=== PATIENT | male | born 1985 | race Caucasian/White ===

== ENCOUNTER 2019-08-07 09:03 | Emergency (ER) | payer OTHER ==
--- NOTE | 2019-08-07 09:20 | ED Physician Documentation ---
PD HPI ABD PAIN - Stated complaint Stated Complaint: ABD PX,RECTAL BLEEDING - Chief complaint Chief Complaint: Abd Pain - History obtained from History obtained from: Patient, Family - History of Present Illness Timing - onset: How many days ago (3) Timing - duration: Days (3) Timing - details: Gradual onset, Still present Quality: Sharp, Pain Location: LLQ Radiation: Lower back Improved by: Laying still Worsened by: Moving, Position, Palpation Associated symptoms: Diarrhea, Constipation, Hematochezia. No: Nausea, Vomiting, Hematemesis Similar symptoms before: Has not had sx before Recently seen: Not recently seen - Additional information Additional information: Previously well 34-year-old male has a history of PTS D and rectal fissure has developed some abdominal pain after a bout of diarrhea 1 week ago. The pain has progressively worsened over the last 3 days stools have firmed and now he has blood. He has left lower quadrant tenderness and denies fever. Review of Systems Constitutional: denies: Fever Eyes: denies: Decreased vision Ears: denies: Ear pain Nose: denies: Rhinorrhea / runny nose, Congestion Throat: denies: Sore throat Cardiac: denies: Chest pain / pressure, Palpitations Respiratory: reports: Cough. denies: Dyspnea GI: reports: Abdominal Pain, Constipation, Diarrhea. denies: Nausea, Vomiting : denies: Dysuria, Frequency Skin: denies: Rash Musculoskeletal: denies: Neck pain, Back pain, Extremity pain Neurologic: denies: Generalized weakness, Focal weakness, Numbness PD PAST MEDICAL HISTORY - Past Medical History Psych: Bipolar disorder, Panic attacks - Past Surgical History Past Surgical History: Yes - Present Medications Home Medications: Ambulatory Orders Medication Instructions Recorded Confirmed Ondansetron [Zofran] 4 mg PO Q6H PRN 09/05/13 09/05/13 Promethazine [Phenergan] 25 - 50 mg PO Q6H PRN #10 tab 09/05/13 Ziprasidone HCl [Geodon] 40 mg PO 09/05/13 09/05/13 clonazePAM [Klonopin] 1 mg PO 09/05/13 09/05/13 Ciprofloxacin HCl [Cipro] 500 mg PO BID #14 tablet 08/07/19 Hydrocodone/Acetaminophen 1 - 2 each PO Q6H PRN #14 tablet 08/07/19 [Hydrocodon-Acetaminophen 5-325] Metronidazole [Flagyl] 500 mg PO BID #14 tablet 08/07/19 - Allergies Allergies/Adverse Reactions: Allergies Allergy/AdvReac Type Severity Reaction Status Date / Time escitalopram oxalate * AdvReac Intermediate n/v, sweats Verified 08/07/19 09:12 [From Lexapro] sertraline HCl * AdvReac Intermediate n/v, sweats Verified 08/07/19 09:12 [From Zoloft] - Social History Does the pt smoke?: Yes Smoking Status: Current every day smoker Does the pt drink ETOH?: No Does the pt have substance abuse?: No - Immunizations Immunizations are current?: Yes PD ED PE NORMAL - Vitals Vital signs reviewed: Yes (hypertensive) - General General: Alert and oriented X 3, No acute distress, Well developed/nourished - HEENT HEENT: Atraumatic, PERRL, EOMI - Neck Neck: Supple, no meningeal sign, No bony TTP - Cardiac Cardiac: RRR, No murmur - Respiratory Respiratory: No respiratory distress, Clear bilaterally - Abdomen Abdomen: Soft, Other (Left lower quadrant tenderness and left sided tenderness with gaurding, rebound and referred tenderness. There is no specific RLQ or RUQ pain to direct palpation but pain is referred to the LLQ. ) - Back Back: No CVA TTP, No spinal TTP - Derm Derm: Normal color, Warm and dry, No rash - Extremities Extremities: No deformity, No edema, No calf tenderness / cord - Neuro Neuro: Alert and oriented X 3, litigation partner 2-12 intact, No motor deficit, No sensory deficit, Normal speech Eye Opening: Spontaneous Motor: Obeys Commands Verbal: Oriented GCS Score: 15 - Psych Psych: Normal mood, Normal affect Results - Vitals Vitals: Vital Signs - 24 hr 08/07/19 08/07/19 09:08 12:02 Temperature 36.6 C 36.5 C Heart Rate 57 L 52 L Respiratory 16 16 Rate Blood Pressure 135/78 H 127/88 H O2 Saturation 99 100 Oxygen O2 Source Room air - Labs Labs: Laboratory Tests 08/07/19 08/07/19 08/07/19 09:50 09:50 09:50 WBC 6.8 RBC 5.05 Hgb 14.9 Hct 44.4 MCV 87.9 MCH 29.5 MCHC 33.6 RDW 13.2 Plt Count 257 MPV 10.4 Neut # (Auto) 3.9 Lymph # (Auto) 2.0 Knott # (Auto) 0.6 Eos # (Auto) 0.2 Baso # (Auto) 0.1 Absolute Nucleated RBC 0.00 Nucleated RBC % 0.0 Sodium 136 Potassium 4.4 Chloride 102 Carbon Dioxide 26 Anion Gap 8.0 BUN 13 Creatinine 1.1 Estimated GFR (MDRD) 77 L Glucose 106 H Lactic Acid 1.2 Calcium 9.1 Total Bilirubin 0.7 AST 21 ALT 26 Alkaline Phosphatase 67 Total Protein 7.3 Albumin 4.1 Globulin 3.2 Albumin/Globulin Ratio 1.3 Lipase 22 Urine Color Urine Clarity Urine pH Ur Specific [place] Urine Protein Urine Glucose (UA) Urine Ketones Urine Occult Blood Urine Nitrite Urine Bilirubin Urine Urobilinogen Ur Leukocyte Esterase Ur Microscopic Review Urine Culture Comments 08/07/19 09:55 WBC RBC Hgb Hct MCV MCH MCHC RDW Plt Count MPV Neut # (Auto) Lymph # (Auto) Knott # (Auto) Eos # (Auto) Baso # (Auto) Absolute Nucleated RBC Nucleated RBC % Sodium Potassium Chloride Carbon Dioxide Anion Gap BUN Creatinine Estimated GFR (MDRD) Glucose Lactic Acid Calcium Total Bilirubin AST ALT Alkaline Phosphatase Total Protein Albumin Globulin Albumin/Globulin Ratio Lipase Urine Color DARK YELLOW Urine Clarity CLEAR Urine pH 6.5 Ur Specific [place] 1.020 Urine Protein NEGATIVE Urine Glucose (UA) NEGATIVE Urine Ketones NEGATIVE Urine Occult Blood NEGATIVE Urine Nitrite NEGATIVE Urine Bilirubin NEGATIVE Urine Urobilinogen 0.2 (NORMAL) Ur Leukocyte Esterase NEGATIVE Ur Microscopic Review NOT INDICATED Urine Culture Comments NOT INDICATED - Rads (name of study) CT ab/pel w Radiology: Prelim report reviewed (Impression: 1. Findings suggestive of minimal inflammatory change in the region of the distal left descending colon suggestive of mild acute diverticulitis.), EMP read indepedently, See rad report PD MEDICAL DECISION MAKING - ED course Complexity details: reviewed old records, reviewed results, re-evaluated patient, considered differential, d/w patient, d/w family ED course: 34-year-old male with left lower quadrant abdominal pain has mild diverticulitis on CT examination. He has normal white blood cell count we will place him on some oral antibiotic and pain medication and have him follow-up with his primary. Departure - Departure Disposition: 01 Home, Self Care Clinical Impression: Diverticulitis of gastrointestinal tract Instructions: ED Diverticulitis Follow-Up: [facility] [Provider Group] Prescriptions: Ciprofloxacin HCl [Cipro] 500 mg PO BID #14 tablet Hydrocodone/Acetaminophen [Hydrocodon-Acetaminophen 5-325] 1 - 2 each PO Q6H PRN #14 tablet PRN Reason: pain Metronidazole [Flagyl] 500 mg PO BID #14 tablet
[2019-08-07] MEDS ORDERED: SODIUM CHLORIDE 0.9% 1,000 ML IV ONE (09:44)
[2019-08-07] MEDS ORDERED: KETOROLAC 30 MG/ML VIAL IVP STA (09:44)
[2019-08-07] MEDS ORDERED: IOVERSOL 320 100 ML VIAL IVP ONE ×2 (09:58→17:42)
[2019-08-07 10:04] LABS: BILIRUBIN,URINE NEGATIVE (NEGATIVE); GLUCOSE, URINE (UA) NEGATIVE (NEGATIVE); KETONES,URINE (UA) NEGATIVE (NEGATIVE); LEUKOCYTE ESTERASE, URINE NEGATIVE (NEGATIVE); NITRITE,URINE NEGATIVE (NEGATIVE); OCCULT BLOOD,URINE NEGATIVE (NEGATIVE); PH,URINE 6.5 PH (5.0-7.5); PROTEIN,URINE NEGATIVE (NEGATIVE); UROBILINOGEN,URINE 0.2 (NORMAL) E.U./dL (NORMAL)
[2019-08-07 10:05] LABS: CLARITY,URINE CLEAR (CLEAR)
[2019-08-07 10:06] LABS: BASOPHILS # (AUTO) 0.1 10^3/uL (0.0-0.1); BASOPHILS % (AUTO) 0.7 %; EOSINOPHILS # (AUTO) 0.2 10^3/uL (0.0-0.7); EOSINOPHILS % (AUTO) 2.5 %; HGB - HEMOGLOBIN 14.9 g/dL (14.0-18.0); LYMPHOCYTES % (AUTO) 28.9 %; MEAN CORPUSCULAR HEMOGLOBIN 29.5 pg (27.0-31.0); MEAN CORPUSCULAR HGB CONC 33.6 g/dL (32.0-36.0); MEAN CORPUSCULAR VOLUME 87.9 fL (80.0-94.0); MEAN PLATELET VOLUME 10.4 fL (7.4-11.4); MONOCYTES # (AUTO) 0.6 10^3/uL (0.0-1.0); MONOCYTES % (AUTO) 9.3 %; NEUTROPHILS # (AUTO) 3.9 10^3/uL (1.5-6.6); NEUTROPHILS % (AUTO) 57.9 %; PLT - PLATELET COUNT 257 10^3/uL (130-450); RED BLOOD COUNT 5.05 10^6/uL (4.70-6.10); RED CELL DISTRIBUTION WIDTH 13.2 % (12.0-15.0); WHITE BLOOD COUNT 6.8 x10^3/uL (4.8-10.8)
[2019-08-07 10:14] LABS: ALBUMIN 4.1 g/dL (3.2-5.5); ALBUMIN/GLOBULIN RATIO 1.3 (1.0-2.2); BILIRUBIN,TOTAL 0.7 mg/dL (0.2-1.0); CALCIUM 9.1 mg/dL (8.5-10.3); CREATININE 1.1 mg/dL (0.6-1.2); TOTAL PROTEIN 7.3 g/dL (6.7-8.2)
--- NOTE | 2019-08-07 11:49 | CT Report ---
Reason: LLQ pain Procedure Date: 08/07/2019 Accession Number: [id number] / [id number] Procedure: CT - Abdomen/Pelvis W CPT Code: Final Report FULL RESULT: EXAM: CT ABDOMEN AND PELVIS EXAM DATE: 08/07/2019 10:59 AM. CLINICAL HISTORY: Left lower quadrant pain. COMPARISONS: None. TECHNIQUE: Routine helical CT imaging was performed through the abdomen and pelvis. IV contrast: Optiray 320. Enteric contrast: No. Reconstructions: Coronal and sagittal. In accordance with CT protocol optimization, one or more of the following dose reduction techniques were utilized for this exam: automated exposure control, adjustment of mA and/or KV based on patient size, or use of iterative reconstructive technique. FINDINGS: Lung Bases: There is a 4 mm diameter hypodense nodule in the anterior right middle lobe image 3/5. The findings may indicate a granuloma. There is no consolidation. The left lung appears unremarkable. Liver: Fatty infiltration of the liver. The liver appears otherwise unremarkable. Gallbladder/Bile Ducts: Unremarkable. Spleen: Normal. Pancreas: Normal. Adrenal Glands: Normal. Kidneys: Normal. No masses or hydronephrosis. Peritoneal Cavity/Bowel: There is moderate colonic diverticulosis. There is minimal mural thickening in the proximal sigmoid colon and distal descending colon with pericolic fat stranding, image 3/78. Findings are suggestive of acute diverticulitis.No free fluid. The stomach and small bowel appear unremarkable. Pelvic Organs: Normal. The bladder and visualized pelvic organs are within normal limits. Vasculature: No aneurysms or other significant abnormality. Bones: There are Schmorl's nodes and inferior endplates of T12 and L1 with disk space narrowing and endplate osteophyte formation consistent with osteoarthritis. Other: There is prominent fat in the inguinal canals. IMPRESSION: 1. Findings suggestive of minimal inflammatory change in the region of the distal left descending colon suggestive of mild acute diverticulitis. RADIA
[2019-08-07 12:03] VITALS: BP 127/88
== END 2019-08-07 12:13 | disposition home or self-care (01) ==
LOC: ED 09:03
DX: K57.32 Diverticulitis of large intestine without perforation or abscess without bleeding (principal); F17.200 Nicotine dependence, unspecified, uncomplicated
CPT/HCPCS: 36415; 74177; 80053; 81003; 83605; 83690; 85025; 96361; 96374; 99284; Q9967; 81001; 87086

== ENCOUNTER 2023-01-25 08:52 | Outpatient (CLI) | payer OTHER | END 2023-01-25 23:59 | disposition critical access hospital (66) | LOC: EMS 08:52 | DX: Z04.6 Encounter for general psychiatric examination, requested by authority (principal); R45.6 Violent behavior; R45.1 Restlessness and agitation; R41.0 Disorientation, unspecified; Z78.1 Physical restraint status | CPT/HCPCS: A0425; A0427 ==

== ENCOUNTER 2023-01-25 09:14 | Emergency (ER) | payer OTHER ==
[2023-01-25] MEDS ORDERED: HALOPERIDOL 5 MG/ML VIAL IVP STA (09:24)
--- NOTE | 2023-01-25 09:27 | ED Physician Documentation ---
PD HPI MHE - Stated complaint Stated Complaint: MHE - History obtained from History obtained from: Patient, EMS, Police - History of Present Illness Primary symptom: Psychosis, Anxiety, Aggressive behavior, Other (insomnia) Timing - onset: How many days ago (at least 4 days) Contributing factors: No: Substance abuse - ETOH, Substance abuse - drugs Similar symptoms before: Diagnosis (anxiety, PTSD, bipolar) Recently seen: Not recently seen Review of Systems Unable to obtain: Uncooperative Cardiac: denies: Chest pain / pressure Respiratory: denies: Dyspnea, Cough GI: denies: Abdominal Pain, Vomiting, Diarrhea Neurologic: denies: Syncope, Headache, Head injury PD PAST MEDICAL HISTORY - Past Medical History Respiratory: None Neuro: None Psych: Bipolar disorder, Panic attacks - Past Surgical History Past Surgical History: Yes - Present Medications Home Medications: Ambulatory Orders Medication Instructions Recorded Confirmed Guanfacine HCl [Intuniv] 1 mg PO DAILY PM 01/25/23 01/25/23 LORazepam [Ativan] 0.5 mg PO DAILY PRN 01/25/23 01/25/23 Methylphenidate HCl 36 mg PO DAILY 01/25/23 01/25/23 [Methylphenidate ER] QUEtiapine [SEROquel] 50 mg PO QPM PRN #10 tablet 01/25/23 - Allergies Allergies/Adverse Reactions: Allergies Allergy/AdvReac Type Severity Reaction Status Date / Time escitalopram oxalate * AdvReac Intermediate n/v, sweats Verified 01/25/23 18:19 [From Lexapro] sertraline HCl * AdvReac Intermediate n/v, sweats Verified 01/25/23 18:19 [From Zoloft] - Living Situation Living Situation: reports: With spouse/s.o. Living Arrangement: reports: At home - Social History Does the pt smoke?: Yes Smoking Status: Current every day smoker Does the pt drink ETOH?: No Does the pt have substance abuse?: No - Immunizations Immunizations are current?: Yes PD ED PE NORMAL - Vitals Vital signs reviewed: Yes - General General: Alert and oriented X 3, No acute distress, Well developed/nourished - HEENT HEENT: Atraumatic - Neck Neck: Supple, no meningeal sign, No bony TTP - Cardiac Cardiac: No murmur. No: RRR (mild tachycardia) - Respiratory Respiratory: Clear bilaterally - Abdomen Abdomen: Soft, Non tender - Back Back: No CVA TTP, No spinal TTP - Derm Derm: Normal color, Warm and dry - Extremities Extremities: Normal ROM s pain - Neuro Neuro: No motor deficit, Normal speech Results - Vitals Vitals: Vital Signs - 24 hr 01/25/23 01/25/23 01/25/23 09:23 10:03 10:50 Temperature 36.8 C 37 C Heart Rate 104 H 81 99 Respiratory 20 16 16 Rate Blood Pressure 145/79 H 145/106 H 137/95 H O2 Saturation 97 95 98 Oxygen O2 Source Room air - Labs Labs: Laboratory Tests 01/25/23 01/25/23 01/25/23 09:40 09:40 09:40 WBC 10.9 H RBC 4.99 Hgb 14.9 Hct 43.5 MCV 87.2 MCH 29.9 MCHC 34.3 RDW 13.4 Plt Count 294 MPV 11.0 Neut # (Auto) 8.8 H Lymph # (Auto) 1.1 L Atkinson # (Auto) 0.9 Eos # (Auto) 0.0 Baso # (Auto) 0.0 Absolute Nucleated RBC 0.00 Nucleated RBC % 0.0 Sodium 138 Potassium 4.1 Chloride 105 Carbon Dioxide 22 Anion Gap 11.0 BUN 18 Creatinine 1.5 H Estimated GFR (MDRD) 53 L Glucose 115 H Calcium 9.8 Magnesium 2.1 Total Bilirubin 0.8 AST 26 ALT 31 Alkaline Phosphatase 65 Total Creatine Kinase 476 H Total Protein 8.1 Albumin 4.7 Globulin 3.4 Albumin/Globulin Ratio 1.4 Lipase 20 TSH 1.81 Salicylates < 1.5 Acetaminophen 0.1 Ethyl Alcohol < 10.0 PD Medical Decision Making - ED course ED course: The patient arrives via EMS. They had given Versed 10 mg IM/IV prior to arrival. The patient is interacting verbally intermittently. He is answering some questions. He is not putting up resistance nor active. He is occasionally clenching fists. At this point though he is not harm for himself or others. He arrived in soft restraints but we will try him without at this point and offer some food and drink. He states his main complaint is he has not slept in 4 days and feels he needs some. I offered medication to help with that and he agreed to some medication IV to help with relaxing and sleep. I will give him 2 mg of Haldol IV to help with his symptoms. We are offering him comfort with pillow and blankets and also we can offer some juice and water. We will watch closely for any escalation. The patient received 2 mg of Haldol IV to help with his anxiety and symptoms. He was in agreement for medications to help with his symptoms. He was feeling more relaxed and comfortable. He did not require any redirection or such. He was following direction. Correction officers remained here in the department as he was going to longterm. Initially I was going to have social work evaluate him but since he is being incarcerated and going to the longterm at this time, I feel it is most prudent to release him from the ER and let him go there. They can have mental health evaluation there if deemed appropriate. At this point he is having conversation and logical sentence structure and interaction. He is calm and cooperative. The patient is discharged stable from the ER. Corrections officers are here and will be bringing him to the longterm. I called Desiree Stafford the nurse practitioner for the longterm. It went to [facility] directly and I left a message without patient identifiers about the summary of treatment. I did prescribe Seroquel to use at night for sleep. This may help with some of his mood. His medication list we have includes Geodon but his medication bottles brought with him by EMS did not include that. It included guanfacine, lorazepam, methylphenidate. Departure - Departure Disposition: 01 Home, Self Care Clinical Impression: Insomnia Bipolar disorder Qualifiers: Active/Remission status: currently active Current bipolar episode type: mixed Current episode severity: severe Psychotic features: with psychotic features Qualified Code(s): F31.64 - Bipolar disorder, current episode mixed, severe, with psychotic features Condition: Stable Record reviewed to determine appropriate education?: Yes Follow-Up: DESIREE STAFFORD ARNP [Physician No Access] - Prescriptions: QUEtiapine [SEROquel] 50 mg PO QPM PRN #10 tablet PRN Reason: Insomnia Comments: Continue with your usual medications. You could add medication at night to help with sleep. I wrote a prescription for Seroquel which is commonly used for sleep. It may help with mood and anxiety as well. You will also be seen in treated by the longterm medical provider if other medications are indicated. Forms: PCP List Discharge Date/Time: 01/25/23 11:25
[2023-01-25 09:55] LABS: BASOPHILS % (AUTO) 0.2 %; EOSINOPHILS % (AUTO) 0.1 %; HCT - HEMATOCRIT 43.5 % (42.0-52.0); HGB - HEMOGLOBIN 14.9 g/dL (14.0-18.0); LYMPHOCYTES # (AUTO) 1.1 10^3/uL (1.5-3.5); LYMPHOCYTES % (AUTO) 10.1 %; MEAN CORPUSCULAR HEMOGLOBIN 29.9 pg (27.0-31.0); MEAN CORPUSCULAR HGB CONC 34.3 g/dL (32.0-36.0); MEAN CORPUSCULAR VOLUME 87.2 fL (80.0-94.0); MONOCYTES # (AUTO) 0.9 10^3/uL (0.0-1.0); MONOCYTES % (AUTO) 8.6 %; NEUTROPHILS # (AUTO) 8.8 10^3/uL (1.5-6.6); NEUTROPHILS % (AUTO) 80.5 %; PLT - PLATELET COUNT 294 10^3/uL (130-450); RED BLOOD COUNT 4.99 10^6/uL (4.70-6.10); RED CELL DISTRIBUTION WIDTH 13.4 % (12.0-15.0); WHITE BLOOD COUNT 10.9 x10^3/uL (4.8-10.8)
[2023-01-25 10:03] LABS: ACETAMINOPHEN 0.1 ug/mL; ALBUMIN 4.7 g/dL (3.2-5.5); ALBUMIN/GLOBULIN RATIO 1.4 (1.0-2.2); ALKALINE PHOSPHATASE 65 IU/L (42-121); ALT ALANINE AMINOTRANSFERASE 31 IU/L (10-60); AST ASPARTATE AMINOTRANSFERASE 26 IU/L (10-42); BILIRUBIN,TOTAL 0.8 mg/dL (0.2-1.0); BUN - BLOOD UREA NITROGEN 18 mg/dL (6-20); CALCIUM 9.8 mg/dL (8.5-10.3); CARBON DIOXIDE - CO2 22 mmol/L (21-32); CHLORIDE 105 mmol/L (101-111); CK- CREATINE KINASE 476 IU/L (30-223); CREATININE 1.5 mg/dL (0.6-1.3); ETOH - ETHANOL < 10.0 mg/dL; GFR - MDRD 53 (>89); GLUCOSE 115 mg/dL (74-104); LIPASE 20 U/L (11-82); MAGNESIUM 2.1 mg/dL (1.7-2.3); POTASSIUM 4.1 mmol/L (3.5-4.5); SODIUM 138 mmol/L (135-145); TOTAL PROTEIN 8.1 g/dL (6.4-8.9)
[2023-01-25 10:14] LABS: SALICYLATE < 1.5 mg/dL
[2023-01-25 11:09] VITALS: BP 137/95
== END 2023-01-25 11:25 | disposition home or self-care (01) ==
LOC: EDUNIT# → ED 09:14
DX: G47.00 Insomnia, unspecified (principal); F31.64 Bipolar disorder, current episode mixed, severe, with psychotic features; F17.200 Nicotine dependence, unspecified, uncomplicated
CPT/HCPCS: 36415; 80053; 80307; 80320; 80329; 82550; 83690; 83735; 84443; 85025; 93005; 96374; 99284

== ENCOUNTER 2023-01-25 18:08 | Outpatient (CLI) | payer OTHER | END 2023-01-25 18:09 | disposition critical access hospital (66) | LOC: EMS 18:08 | DX: Z04.6 Encounter for general psychiatric examination, requested by authority (principal); R46.89 Other symptoms and signs involving appearance and behavior; R45.1 Restlessness and agitation; Z78.1 Physical restraint status | CPT/HCPCS: A0425; A0429 ==

== ENCOUNTER 2023-01-25 18:12 | Emergency (ER) | payer OTHER ==
--- NOTE | 2023-01-25 18:26 | ED Physician Documentation ---
PD HPI MHE - Stated complaint Stated Complaint: AMS - History obtained from History obtained from: Patient, EMS, Police - History of Present Illness Primary symptom: Psychosis (he was not following direction, not interacting verbally. Making fists and grimaces.), Aggressive behavior Timing - onset: How many days ago (several days of increased agitation, unable to sleep for 4 days. Increased anxiety and this morning was agitated to where he displayed physically. Brought to ER and was improved with some medication. Brought to long-term. Reportedly was more agitated there, not directable verbally. fighting.) Contributing factors: Off meds (he says he had not had usual meds for several days. Meds are for ADD and mood disorder. No bipolar meds per se.). No: Substance abuse - ETOH, Substance abuse - drugs Recently seen: Emergency Dept (earlier today) Review of Systems Unable to obtain: Other (info had been obtained at prior ER visit this morning.) Constitutional: denies: Fever Nose: denies: Rhinorrhea / runny nose, Congestion Throat: denies: Sore throat Cardiac: denies: Chest pain / pressure Respiratory: denies: Cough GI: denies: Abdominal Pain, Vomiting, Diarrhea Neurologic: denies: Focal weakness, Headache, Head injury Psychiatric: reports: Anxiety, Insomnia. denies: Suicidal, Homicidal PD PAST MEDICAL HISTORY - Past Medical History Cardiovascular: None Respiratory: None Endocrine/Autoimmune: None Psych: Bipolar disorder, Panic attacks - Past Surgical History Past Surgical History: Yes - Present Medications Home Medications: Ambulatory Orders Medication Instructions Recorded Confirmed Guanfacine HCl [Intuniv] 1 mg PO DAILY PM 01/25/23 01/25/23 LORazepam [Ativan] 0.5 mg PO DAILY PRN 01/25/23 01/25/23 Methylphenidate HCl 36 mg PO DAILY 01/25/23 01/25/23 [Methylphenidate ER] QUEtiapine [SEROquel] 50 mg PO QPM PRN #10 tablet 01/25/23 - Allergies Allergies/Adverse Reactions: Allergies Allergy/AdvReac Type Severity Reaction Status Date / Time escitalopram oxalate * AdvReac Intermediate n/v, sweats Verified 01/25/23 18:19 [From Lexapro] sertraline HCl * AdvReac Intermediate n/v, sweats Verified 01/25/23 18:19 [From Zoloft] - Social History Does the pt smoke?: Yes Smoking Status: Current every day smoker Does the pt drink ETOH?: No Does the pt have substance abuse?: No - Immunizations Immunizations are current?: Yes PD ED PE NORMAL - Vitals Vital signs reviewed: Yes - General General: Well developed/nourished, Other (brought by EMS, law enforcement accompanying. Pt is still in custody, coming from long-term.) - HEENT HEENT: Atraumatic - Cardiac Cardiac: No: RRR (regular but tachycardic) - Respiratory Respiratory: No respiratory distress, Clear bilaterally - Abdomen Abdomen: Non tender, Non distended - Derm Derm: Normal color, Warm and dry - Extremities Extremities: Other (pulling against restraints, hands in fists. He does not focus on me nor look toward me when I talk toward him, at bedside. He does not seem to be receiving my questions. Tried soothing and directing verbally. Offered food/water. Keeps twisting wrist to try to get wrists out.) - Neuro Neuro: No motor deficit (moving all extremities. ) Eye Opening: Spontaneous Motor: Localizes to Pain Verbal: None (not talking at all, not responding to questions or comments.) GCS Score: 10 - Psych Psych: No: Normal affect (agitated and unfocused but alert and purposeful movements. ) Results - Vitals Vitals: Vital Signs - 24 hr 01/25/23 18:19 Temperature 36.3 C L Heart Rate 106 H Respiratory 28 H Rate Blood Pressure 160/127 H O2 Saturation 96 Oxygen O2 Source Room air - Labs Labs: Laboratory Tests 01/25/23 01/25/23 01/25/23 18:20 19:18 19:18 WBC 17.2 H RBC 5.18 Hgb 15.3 Hct 45.2 MCV 87.3 MCH 29.5 MCHC 33.8 RDW 13.3 Plt Count 304 MPV 10.7 Neut # (Auto) Not Reportable Lymph # (Auto) Not Reportable Benzie # (Auto) Not Reportable Eos # (Auto) Not Reportable Baso # (Auto) Not Reportable Absolute Nucleated RBC Not Reportable Total Counted 100 Band Neuts % (Manual) 0 Reactive Lymphs % (Man) 8 Abnorm Lymph % (Manual) 0 Nucleated RBC % Not Reportable Neutrophils # (Manual) 13.1 H Lymphocytes # (Manual) 3.4 Monocytes # (Manual) 0.7 Eosinophils # (Manual) 0.0 Basophils # (Manual) 0.0 Differential Comment MANUAL DIFFERENTIAL Platelet Estimate NORMAL (130-450,000) Platelet Morphology NORMAL APPEARANCE RBC Morph Micro Appear NORMAL APPEARANCE Sodium 138 Potassium 3.7 Chloride 103 Carbon Dioxide 24 Anion Gap 11.0 BUN 20 Creatinine 1.4 H Estimated GFR (MDRD) 57 L Glucose 98 POC Whole Bld Glucose 134 H Calcium 10.0 Magnesium 1.9 Total Bilirubin 0.8 AST 52 H ALT 37 Alkaline Phosphatase 63 Total Creatine Kinase 2245 H* Total Protein 8.1 Albumin 4.8 Globulin 3.3 Albumin/Globulin Ratio 1.5 Lipase 21 TSH 1.18 Salicylates < 1.5 Acetaminophen 0.1 Ethyl Alcohol < 10.0 PD Medical Decision Making - ED course Complexity details: considered differential (increased agitation and unresponsive to external stimuli. Lesser restrictive measures not calming.), d/w patient Drug Therapy Requiring Monitoring for Toxicity: Given Zyprexa IM to help with agitation. He was pulling and writhing with the physical restraints, and I would be concerned about muscle injury with that. So with chemical rstraint. This did lead to calming of his physical agitation and restlessness after 15-20 minutes. I then talked with him and he was answering questions some at this time. I asked if he feels more medication would be helpful to him to sleep/relax, as some extra this AM had helped for awhile. He said he would like medication. Since the Zyprexa did wseem to help (as did some Haldol this AM), I gave Zyprexa 10 mg PO, which he accepted from nursing without problem. Assessing if restraints need to continue. Giving PO meds short time. Change of shift to Dr. Laird. The Jailers state they are able to take pt back to long-term if he is calmer and there is a med plan. It is not clear if he had gotten any meds while at the [facility]. Departure - Departure Clinical Impression: Insomnia Bipolar disorder Qualifiers: Active/Remission status: currently active Current bipolar episode type: mixed Current episode severity: severe Psychotic features: with psychotic features Qualified Code(s): F31.64 - Bipolar disorder, current episode mixed, severe, with psychotic features Condition: Stable
[2023-01-25] MEDS ORDERED: OLANZapine 10 MG VIAL IM STA (18:32)
--- NOTE | 2023-01-25 18:32 | ED Physician Documentation ---
Restraint [id number] - Immediate Situation Face to Face Evaluation Date: 01/25/23 Face to Face Evaluation Time: 18:30 Restraint Classification: Violent, physical, chemical Restraint Type: Locked extremity, Chemical - Patient's Reaction & Behaviors Safety: Non-compliant, Unable to Follow Commands Harm: Potential harm to others (He has tense muscles, making fists, unfocused attention and seems bothered by stimuli around him. ) Physical: Aggressive behavior, Fighting restraints - Behavioral Condition Attitude: Other (anxious and angry) Behavior: Uncooperative, Agitated Orientation: Disoriented to all (no answering questions. Unfocused gaze and attention. ) Mood: Angry, Anxious - Evaluation System status changes from initial ED note: none Pertinent History/Illicit Drugs/Medications/Results: history of bipolar and not on meds fromprior visit today. - Plan Need to Continue or Terminate Violent or Chemical Restraint: when less anxious and can focus and interact to ollow direction, understand less restrictive options.
[2023-01-25] MEDS ORDERED: OLANZapine ODT 5 MG TABLET TL STA (19:02)
[2023-01-25 19:22] LABS: BASOPHILS % (AUTO) 0.2 %; EOSINOPHILS % (AUTO) 0.1 %; HCT - HEMATOCRIT 45.2 % (42.0-52.0); HGB - HEMOGLOBIN 15.3 g/dL (14.0-18.0); LYMPHOCYTES % (AUTO) 12.6 %; MEAN CORPUSCULAR HEMOGLOBIN 29.5 pg (27.0-31.0); MEAN CORPUSCULAR HGB CONC 33.8 g/dL (32.0-36.0); MEAN CORPUSCULAR VOLUME 87.3 fL (80.0-94.0); MEAN PLATELET VOLUME 10.7 fL (7.4-11.4); MONOCYTES % (AUTO) 9.2 %; NEUTROPHILS % (AUTO) 77.6 %; PLT - PLATELET COUNT 304 10^3/uL (130-450); RED BLOOD COUNT 5.18 10^6/uL (4.70-6.10); RED CELL DISTRIBUTION WIDTH 13.3 % (12.0-15.0); WHITE BLOOD COUNT 17.2 x10^3/uL (4.8-10.8)
[2023-01-25 19:24] LABS: ABNORMAL LYMPHS % (MANUAL) 0 %; BAND NEUTROPHILS % (MANUAL) 0 %
[2023-01-25 19:39] LABS: ACETAMINOPHEN 0.1 ug/mL; ALBUMIN 4.8 g/dL (3.2-5.5); ALBUMIN/GLOBULIN RATIO 1.5 (1.0-2.2); ALKALINE PHOSPHATASE 63 IU/L (42-121); ALT ALANINE AMINOTRANSFERASE 37 IU/L (10-60); AST ASPARTATE AMINOTRANSFERASE 52 IU/L (10-42); BILIRUBIN,TOTAL 0.8 mg/dL (0.2-1.0); BUN - BLOOD UREA NITROGEN 20 mg/dL (6-20); CARBON DIOXIDE - CO2 24 mmol/L (21-32); CHLORIDE 103 mmol/L (101-111); CREATININE 1.4 mg/dL (0.6-1.3); ETOH - ETHANOL < 10.0 mg/dL; GFR - MDRD 57 (>89); GLUCOSE 98 mg/dL (74-104); LIPASE 21 U/L (11-82); MAGNESIUM 1.9 mg/dL (1.7-2.3); POTASSIUM 3.7 mmol/L (3.5-4.5); SODIUM 138 mmol/L (135-145); TOTAL PROTEIN 8.1 g/dL (6.4-8.9)
[2023-01-25 19:41] LABS: LYMPHOCYTES # (MANUAL) 3.4 10^3/uL (1.5-3.5); LYMPHOCYTES % (MANUAL) 12 %; MONOCYTES # (MANUAL) 0.7 10^3/uL (0.0-1.0); NEUTROPHILS # (MANUAL) 13.1 10^3/uL (1.5-6.6); RBC MORPHOLOGY (MULTIPLE) NORMAL APPEARANCE (NORMAL); REACTIVE LYMPHS % (MANUAL) 8 %
[2023-01-25 19:42] LABS: DIFFERENTIAL COMMENT MANUAL DIFFERENTIAL; PLATELET ESTIMATE, MANUAL NORMAL (130-450,000) (NORMAL); PLATELET MORPHOLOGY NORMAL APPEARANCE (NORMAL)
[2023-01-25 19:48] LABS: SALICYLATE < 1.5 mg/dL
[2023-01-25 19:53] LABS: CK- CREATINE KINASE 2245 IU/L (30-223)
[2023-01-25] MEDS ORDERED: SODIUM CHLORIDE 0.9% 1,000 ML IV STA ×2 (19:53)
[2023-01-25 19:54] LABS: THYROID STIMULATING HORMONE 1.18 uIU/mL (0.34-5.60)
[2023-01-25] MEDS ORDERED: diphenhydrAMINE INJ 50 MG/ML VIAL IVP STA (21:21)
[2023-01-25 22:00] LABS: MUDS CUTOFF CONCENTRATIONS CUTOFF CONC BELOW:
[2023-01-25 22:02] LABS: GLUCOSE, URINE (UA) NEGATIVE (NEGATIVE); KETONES,URINE (UA) 40 mg/dL (NEGATIVE); LEUKOCYTE ESTERASE, URINE NEGATIVE (NEGATIVE); NITRITE,URINE NEGATIVE (NEGATIVE); OCCULT BLOOD,URINE SMALL (NEGATIVE); PROTEIN,URINE 100 mg/dL (NEGATIVE); UROBILINOGEN,URINE 0.2 (NORMAL) E.U./dL (NORMAL)
[2023-01-25 22:07] LABS: BILIRUBIN,URINE SMALL (NEGATIVE); CLARITY,URINE HAZY (CLEAR); ICTOTEST,URINE POSITIVE
[2023-01-25 22:21] LABS: BACTERIA,URINE Rare /HPF (None Seen); COCAINE SCREEN URINE NEGATIVE (NEGATIVE); METHAMPHETAMINES SCREEN, URINE NEGATIVE (NEGATIVE); MUCUS,URINE Few Strands; RBC,URINE 0-5 /HPF (0-5); SQUAMOUS EPITHELIAL CELL,UR NONE SEEN (<= Few); THC CANNABINOID SCREEN, URINE NEGATIVE (NEGATIVE); WBC,URINE 0-3 /HPF (0-3)
[2023-01-25 22:22] LABS: AMPHETAMINE SCREEN,URINE NEGATIVE (NEGATIVE); BARBITURATE SCREEN,UR NEGATIVE (NEGATIVE); BENZODIAZEPINES SCREEN, URINE POSITIVE (NEGATIVE); METHADONE SCREEN, URINE NEGATIVE (NEGATIVE); OPIATE SCREEN, URINE NEGATIVE (NEGATIVE); OXYCODONE SCREEN, URINE NEGATIVE (NEGATIVE); PROPOXYPHENE SCREEN, URINE NEGATIVE (NEGATIVE); TRICYCLIC ANTIDEPRESSANT,URINE NEGATIVE (NEGATIVE)
[2023-01-26 01:01] LABS: CALCIUM 8.4 mg/dL (8.5-10.3); CREATININE 1.4 mg/dL (0.6-1.2); POTASSIUM 3.7 mmol/L (3.5-5.0)
[2023-01-26] MEDS ORDERED: SODIUM CHLORIDE 0.9% 1,000 ML IV STA ×2 (01:11)
--- NOTE | 2023-01-26 01:15 | ED Physician Documentation ---
ED Addendum - Addendum Addendum: 01/26/23 01:13 Patient has received several liters of IV fluids. Repeat CK stabilized. No change in patient's renal function. Per Hernandez score patient is very low risk for kidney failure or mortality. Patient to be discharged to court in the morning, will continue to give IV fluids in the meantime.
[2023-01-26 03:07] VITALS: BP 118/78
== END 2023-01-26 02:59 | disposition home or self-care (01) ==
LOC: EDUNIT# → ED 18:12
DX: F31.64 Bipolar disorder, current episode mixed, severe, with psychotic features (principal); Z91.148 Patient's other noncompliance with medication regimen for other reason; F17.200 Nicotine dependence, unspecified, uncomplicated; Z78.1 Physical restraint status; Z20.822 Contact with and (suspected) exposure to COVID-19; G47.00 Insomnia, unspecified
CPT/HCPCS: 36415; 80048; 80053; 80306; 80307; 80320; 80329; 81001; 82550; 83690; 83735; 84443; 85025; 87635; 93005; 96372; 96374; 99284; 99285; A9270; J1200; 81003; 87086

== ENCOUNTER 2024-03-16 18:57 | Outpatient (CLI) | payer OTHER | END 2024-03-16 23:59 | disposition critical access hospital (66) | LOC: EMS 18:57 | DX: R46.89 Other symptoms and signs involving appearance and behavior (principal) | CPT/HCPCS: A0425; A0429 ==

== ENCOUNTER 2024-03-16 19:16 | Emergency (ER) | payer OTHER ==
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
[2024-03-16 19:34] LABS: BASOPHILS % (AUTO) 0.3 %; EOSINOPHILS % (AUTO) 0.3 %; HCT - HEMATOCRIT 42.7 % (42.0-52.0); HGB - HEMOGLOBIN 14.5 g/dL (14.0-18.0); LYMPHOCYTES # (AUTO) 1.6 10^3/uL (1.5-3.5); LYMPHOCYTES % (AUTO) 13.4 %; MEAN CORPUSCULAR HEMOGLOBIN 29.8 pg (27.0-31.0); MEAN CORPUSCULAR VOLUME 87.7 fL (80.0-94.0); MEAN PLATELET VOLUME 10.5 fL (7.4-11.4); MONOCYTES # (AUTO) 0.9 10^3/uL (0.0-1.0); MONOCYTES % (AUTO) 7.4 %; NEUTROPHILS # (AUTO) 9.3 10^3/uL (1.5-6.6); NEUTROPHILS % (AUTO) 78.1 %; PLT - PLATELET COUNT 305 10^3/uL (130-450); RED BLOOD COUNT 4.87 10^6/uL (4.70-6.10); WHITE BLOOD COUNT 11.9 x10^3/uL (4.8-10.8)
[2024-03-16 19:40] LABS: BILIRUBIN,URINE NEGATIVE (NEGATIVE); GLUCOSE, URINE (UA) NEGATIVE (NEGATIVE); KETONES,URINE (UA) 15 mg/dL (NEGATIVE); LEUKOCYTE ESTERASE, URINE NEGATIVE (NEGATIVE); NITRITE,URINE NEGATIVE (NEGATIVE); OCCULT BLOOD,URINE NEGATIVE (NEGATIVE); PH,URINE 5.5 PH (5.0-7.5); PROTEIN,URINE NEGATIVE (NEGATIVE); UROBILINOGEN,URINE 0.2 (NORMAL) E.U./dL (NORMAL)
[2024-03-16 19:44] LABS: CLARITY,URINE CLEAR (CLEAR)
[2024-03-16 19:48] LABS: AMPHETAMINE SCREEN,URINE NEGATIVE (NEGATIVE); BARBITURATE SCREEN,UR NEGATIVE (NEGATIVE); BENZODIAZEPINES SCREEN, URINE NEGATIVE (NEGATIVE); BUPRENORPHINE SCREEN, URINE NEGATIVE (NEGATIVE); COCAINE SCREEN URINE NEGATIVE (NEGATIVE); METHADONE SCREEN, URINE NEGATIVE (NEGATIVE); METHAMPHETAMINES SCREEN, URINE NEGATIVE (NEGATIVE); OPIATE SCREEN, URINE NEGATIVE (NEGATIVE); OXYCODONE SCREEN, URINE NEGATIVE (NEGATIVE); THC CANNABINOID SCREEN, URINE NEGATIVE (NEGATIVE); TRICYCLIC ANTIDEPRESSANT,URINE NEGATIVE (NEGATIVE)
[2024-03-16 19:51] LABS: ACETAMINOPHEN 0.1 ug/mL; ALBUMIN 4.7 g/dL (3.2-5.5); ALBUMIN/GLOBULIN RATIO 1.8 (1.0-2.2); ALKALINE PHOSPHATASE 66 IU/L (42-121); ALT ALANINE AMINOTRANSFERASE 25 IU/L (10-60); AST ASPARTATE AMINOTRANSFERASE 22 IU/L (10-42); BILIRUBIN,TOTAL 0.5 mg/dL (0.2-1.0); BUN - BLOOD UREA NITROGEN 11 mg/dL (6-20); CALCIUM 9.4 mg/dL (8.5-10.3); CARBON DIOXIDE - CO2 23 mmol/L (21-32); CHLORIDE 103 mmol/L (101-111); CREATININE 1.1 mg/dL (0.6-1.3); ETOH - ETHANOL < 10.0 mg/dL; GFR - MDRD 75 (>89); GLUCOSE 139 mg/dL (74-104); POTASSIUM 3.4 mmol/L (3.5-4.5); SODIUM 137 mmol/L (135-145); TOTAL PROTEIN 7.3 g/dL (6.4-8.9)
[2024-03-16 19:53] LABS: SALICYLATE < 1.5 mg/dL
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
[2024-03-16] MEDS: QUEtiapine 25 MG TABLET PO STA (22:08)
[2024-03-16] MEDS ORDERED: QUEtiapine 25 MG TABLET ONE (22:10)
[2024-03-17] MEDS: diphenhydrAMINE 25 MG CAPSULE PO STA (00:36)
[2024-03-17] MEDS: QUEtiapine 25 MG TABLET PO STA (00:37)
[2024-03-17] MEDS: HALOPERIDOL 5 MG/ML VIAL IM STA (03:27)
--- NOTE | 2024-03-17 07:08 | ED Physician Documentation ---
ED Addendum - Addendum Addendum: 03/17/24 07:08 Signed out to me by Dr. Laird at 7 AM shift change. Briefly this is a manic 38-year-old gentleman and we are awaiting transfer to the [facility]. I ordered his scheduled meds, specifically Prozac, Seroquel, and Abilify as recommended by the telepsychiatric rural health consultant. 03/17/24 15:40 I was told earlier in the day that the [facility] does not have any beds and he was excepted to [facility] by Linda Moreno. Cobras are completed and he is stable for transport. Disposition: Transfer to psychiatric facility Condition: Stable Diagnosis: 1. Bipolar disorder with jose
[2024-03-17] MEDS: ARIPiprazole 5 MG TABLET PO SCH (08:59)
[2024-03-17] MEDS: FLUoxetine 10 MG CAPSULE PO SCH (08:59)
--- NOTE | 2024-03-17 11:57 | PHARMACY PROGRESS NOTE ---
- Best Possible Medication History Admit Date and Time: Processed by: Pharmacy Medications reviewed in ED?: Yes Medication History completed: Yes Patient Interview: Pt unable to participate Secondary Source(s): Spouse/Significant other, Insurance records As the person ultimately responsible for medication therapy, providers are able to order a medication from an existing home medication list in [facility] via the "Reconcile Routine" prior to Confirmation of that medication by rn support services. Such practice is discouraged except when the physician, in their clinical judgment, deems that a medical need exists for a medication without regard to previous use.
--- NOTE | 2024-03-17 19:20 | ED Physician Documentation ---
ED Addendum - Addendum Addendum: 03/17/24 19:19 Patient cooperative, noncombative. Ambulance has arrived to transport patient to inpatient psychiatric hospital. Patient in stable condition at time of leaving the emergency department.
[2024-03-17 19:34] VITALS: BP 128/82; O2SAT 97
[2024-03-17] MEDS ORDERED: QUEtiapine 25 MG TABLET PO SCH ×2 (21:00)
== END 2024-03-17 19:30 ==
LOC: EDUNIT# → ED 19:16
DX: Z04.6 Encounter for general psychiatric examination, requested by authority (principal); F30.9 Manic episode, unspecified; T43.636A Underdosing of methylphenidate, initial encounter; F17.200 Nicotine dependence, unspecified, uncomplicated; T46.5X6A Underdosing of other antihypertensive drugs, initial encounter; Z91.128 Patient's intentional underdosing of medication regimen for other reason; Z75.1 Person awaiting admission to adequate facility elsewhere
CPT/HCPCS: 36415; 80053; 80143; 80179; 80306; 81003; 82077; 84443; 85025; 87635; 90834; 96372; 99284; 99285; A9270; Q3014; 81001; 87086